=== PATIENT | male | born 1990 | race Caucasian/White ===

== ENCOUNTER 2023-01-01 04:17 | Day surgery (SDC) | payer OTHER ==
[2022-12-28 11:58] VITALS: BMI 35.2
[2023-01-01] MEDS ORDERED: KETOROLAC TROMETHAMINE 30 MG/1 ML VIAL ONE (15:24)
[2023-01-01] MEDS ORDERED: ONDANSETRON 4 MG/2 ML VIAL ONE (15:24)
[2023-01-01] MEDS ORDERED: MIDAZOLAM HCL 2 MG/2 ML SINGLE DOSE VIAL ONE ×2 (15:24→15:28)
[2023-01-01 16:05] VITALS: RESP 18
[2023-01-01 17:36] VITALS: BP 120/80; PULSE 70; TEMP 98
== END 2023-01-01 17:30 | disposition home or self-care (01) ==
LOC: JASU-SURG 04:17
PROVIDERS: ATTEND Urology
PROC: 0TF4XZZ Fragmentation in Left Kidney Pelvis, External Approach (ICD-10-PCS; principal; 2023-01-01 15:00)
DX: N20.0 Calculus of kidney (principal)